=== PATIENT | female | born 1995 | race Caucasian/White ===

== ENCOUNTER 2018-03-08 02:35 | Emergency (ER) | payer OTHER ==
--- NOTE | 2018-03-08 02:40 | PDOC ---
History of Present Illness - General Chief Complaint: Pain, Acute Stated Complaint: PAIN Time Seen by Provider: 03/08/18 02:39 - History of Present Illness Initial Comments: 03/08/18 02:56 This otherwise healthy 22-year-old woman presents with right CVA/flank pain that began just prior to presentation. Patient states that she was awakened with nausea; she proceeded to the bathroom when she had sudden onset of right flank/CVA pain. Pain has continued, it intermittently more severe but not resolving. Nausea continues without episodes of vomiting. No previous history of this type of pain; no recent fever/chills. She denies dysuria/hematuria/ urinary frequency. No family history of renal colic. No recent travel or unusual food ingestion. LMP 2 weeks ago, normal in duration/flow; currently sexually active, she denies vaginal discharge No history of smoking/ethanol use/other recreational drug use Past History - Past Medical History Allergies/Adverse Reactions: Allergies Allergy/AdvReac Type Severity Reaction Status Date / Time No Known Allergies Allergy Unverified 03/08/18 02:36 Home Medications: Ambulatory Orders Norethindrone-E.estradiol-Iron [Lo Loestrin Fe 1-10 Tablet] 1 tab PO DAILY 03/08 Oxycodone HCl/Acetaminophen [Percocet 5-325 mg Tablet] 1 tab PO Q6H PRN #4 tablet MDD 2 tabs 03/08/18 Review of Systems - Review of Systems Able to Perform ROS?: Yes Comments:: 12 point review of systems is negative except for what is noted in the history of present illness *Physical Exam - Physical Exam Comments: GENERAL: Young adult female, alert and oriented 3, in mild distress secondary to right CVA/flank pain HEAD: Normal with no signs of trauma. EYES: PERRLA, EOMI, sclera anicteric, conjunctiva clear. ENT: Ears normal, nares patent, oropharynx clear without exudates. Dry mucous membranes. NECK: Normal range of motion, supple without lymphadenopathy, JVD, or masses. LUNGS: Breath sounds equal, clear to auscultation bilaterally. No wheezes, and no crackles. HEART:Regular rate and rhythm, normal S1 and S2 without murmur, rub or gallop. ABDOMEN:.normal bowel sounds No guarding,tenderness or rebound.No masses No distention. EXTREMITIES: Normal range of motion, no edema. No clubbing or cyanosis. No erythema, or tenderness. NEUROLOGICAL: Cranial nerves II through XII grossly intact. Normal speech. No focal neurological deficits. MUSCULOSKELETAL: Back non-tender to palpation, minimal right CVA tenderness SKIN: Warm, Dry, normal turgor, no rashes or lesions noted. ED Treatment Course - LABORATORY CBC & Chemistry Diagram: 03/08/18 03:00 03/08/18 03:00 Progress Note - Progress Note Progress Note: Patient provided urine sample for urinalysis and PGU. IV access obtained and patient received a liter normal saline/30 mg Toradol IV/4 mg Zofran IV. CBC/chemistry profile sent. Patient felt much more comfortable after liter of normal saline IV with Toradol plus Zofran. Urinalysis shows microscopic hematuria with 426 RBCs per high-power field; remainder of the urinalysis is unremarkable except for concentrated urine(1.029) . PGU is negative. CBC and chemistry profile are essentially normal, except for moderate prerenal azotemia . Renal stone protocol abdominal/pelvic CT performed. Interpretation by Imaging systems applications programming lead: 2 mm UVJ stone on the right side without hydroureter. There also is another punctate, 2 mm nonobstructing stone in the right kidney. Otherwise, there is no abnormality seen on the scan. Results discussed with the patient and her parents. She continues to feel comfortable after second liter of normal saline IV. She will be discharged with instructions to drink plenty of water. She should have ibuprofen/naproxen/ acetaminophen as needed for [id number] pain. If she needs stronger medication for more severe pain, prescription for Percocet 5/325 #4) to be used up to twice a day as needed for severe pain will be sent to her pharmacy. If she continues to have pain despite taking Percocet, she should return to the emergency room. Urology referral information for Dr. Sands provided for the patient. She should follow up if she continues to have intermittent flank/CVA pain. She should follow-up with her PCP within one week *DC/Admit/Observation/Transfer Diagnosis at time of Disposition: Renal colic on right side - Discharge Dispostion Disposition: HOME Condition at time of disposition: Stable - Prescriptions Prescriptions: Oxycodone HCl/Acetaminophen [Percocet 5-325 mg Tablet] 1 tab PO Q6H PRN #4 tablet MDD 2 tabs PRN Reason: Severe Pain - Referrals Referrals: Vasquez Sands MD [Staff Physician] - - Patient Instructions Printed Discharge Instructions: Kidney Stones -- Adult Additional Instructions: Drink plenty of water Ibuprofen/Naproxen/Acetaminophen as needed for mild to moderate pain Percocet 5/325, as needed for severe pain return to ER if you have persistent pain or nausea followup with Dr Sands(urologist) if you have persistent pain followup with your general doctor within 1 week - Post Discharge Activity
[2018-03-08 02:41] VITALS: BP 105/67; PULSE 68; TEMP 97.6; BMI 17.3
[2018-03-08] MEDS ORDERED: ONDANSETRON 4 MG/2 ML VIAL IVPUSH ONE (02:50)
[2018-03-08] MEDS ORDERED: SODIUM CHLORIDE 1,000 ML IV STA ×2 (02:50→04:04)
[2018-03-08] MEDS ORDERED: KETOROLAC TROMETHAMINE 30 MG/1 ML VIAL IVPUSH ONE (02:50)
[2018-03-08] MEDS ORDERED: ONDANSETRON 4 MG/2 ML VIAL ONE (02:53)
[2018-03-08] MEDS ORDERED: KETOROLAC TROMETHAMINE 30 MG/1 ML VIAL ONE (02:53)
[2018-03-08 03:31] LABS: BASO % 0.7 % (0-2.0); EOS % 4.5 % (0-4.5); HEMATOCRIT 37.5 % (32.4-45.2); LYMPH % 55.1 % (8-40); MCH 28.7 pg (25.7-33.7); MCHC 34.7 g/dl (32.0-36.0); MEAN CELL VOLUME 82.7 fl (80-96); MEAN PLT VOLUME 8.5 fl (7.5-11.1); MONO % 8.1 % (3.8-10.2); NEUT % 31.6 % (42.8-82.8); PLATELET COUNT 201 K/MM3 (134-434); RBC 4.53 M/mm3 (3.60-5.2); RDW 12.9 % (11.6-15.6); WHITE BLOOD COUNT 6.3 K/mm3 (4.0-10.0)
[2018-03-08 03:33] LABS: URINE APPEARANCE SLCLOUDY; URINE BILIRUBIN NEGATIVE (<2.0 mg/dL); URINE COLOR YELLOW; URINE GLUCOSE (UA) NEGATIVE (NEGATIVE); URINE KETONE NEGATIVE (NEGATIVE); URINE LEUK ESTERASE NEGATIVE (NEGATIVE); URINE NITRITE NEGATIVE (NEGATIVE); URINE UROBILINOGEN NEGATIVE mg/dL (0.2-1.0)
[2018-03-08 03:37] LABS: HCG,QUALITATIVE URINE Negative
[2018-03-08 03:39] LABS: URINE PROTEIN 1+ (NEGATIVE)
[2018-03-08 03:42] LABS: EPI CELLS RARE /HPF (FEW); URINE HYALINE CAST 1 /lpf; URINE MUCUS MANY
[2018-03-08 03:56] LABS: ALBUMIN 3.5 g/dl (3.4-5.0); ANION GAP 9 (8-16); BILIRUBIN,TOTAL 0.2 mg/dL (0.2-1.0); BLOOD UREA NITROGEN 19 mg/dL (7-18); CHLORIDE 105 mmol/L (98-107); CO2 26 mmol/L (21-32); CREATININE 0.7 mg/dL (0.55-1.02); GLUCOSE,RANDOM 98 mg/dL (74-106); POTASSIUM 3.9 mmol/L (3.5-5.1); SGOT/AST 15 U/L (15-37); SGPT/ALT 22 U/L (12-78); SODIUM 140 mmol/L (136-145)
[2018-03-08 03:57] LABS: ALK PHOS 40 U/L (45-117)
== END 2018-03-08 05:30 | disposition home or self-care (01) ==
LOC: FER 02:35
PROC: 3E0333Z Introduction of Anti-inflammatory into Peripheral Vein, Percutaneous Approach (ICD-10-PCS; principal; 2018-03-08)
PROC: 3E033GC Introduction of Other Therapeutic Substance into Peripheral Vein, Percutaneous Approach (ICD-10-PCS; 2018-03-08)
PROC: 3E0337Z Introduction of Electrolytic and Water Balance Substance into Peripheral Vein, Percutaneous Approach (ICD-10-PCS; 2018-03-08)
DX: N23 Unspecified renal colic (principal)
CPT/HCPCS: 36415; 74176; 80053; 81003; 81015; 84703; 85025; 87086; 99283-25; J7030